=== PATIENT | female | born 2005 | race Caucasian/White ===

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

== ENCOUNTER 2024-03-13 14:32 | Emergency (ER) | payer SELFPAY ==
--- OUTSIDE RECORDS SUMMARY | 2024-03-13 14:35 | XMS REPORT | Continuity of Care Document ---
Author Name Unknown Address [address] [place] [address] thconnect Address [address] [place] [address] [address] [place] [address] Care Team Providers Care Ocean Biologist Name Role Phone Unavailable Unavailable Unavailable Encounters Start Date/Time End Date/Time Encounter Type Admission Type Attending Clinicians Care Facility Care Department Encounter ID Source 2023-09-06 15:07:00 2023-09-06 15:07:00 Outpatient [facility] [id number] Uvaldo [place]
[2024-03-13] MEDS ORDERED: ONDANSETRON 4 MG/2 ML VIAL ONE (15:21)
[2024-03-13] MEDS ORDERED: FAMOTIDINE 20 MG/2 ML VIAL IV ONE (15:21)
[2024-03-13] MEDS ORDERED: NA CHLORIDE 0.9% 1,000 ML ONE (15:21)
[2024-03-13 15:28] LABS: Absolute Lymphocytes (CBC) 1.1 K/uL (0.7-4.9); Absolute Monocytes 0.5 K/uL (0.1-1.3); Absolute Neutrophil 6.3 K/uL (1.8-8.0); Basophils % 0.4 % (0-1.3); Eosinophils % 0.4 % (0-4.4); Hematocrit 44.7 % (36.0-45.0); Hemoglobin 14.2 g/dL (12.0-15.0); Lymphocytes % 14.3 % (15.3-44.8); MCH 26.8 pg (27.0-35.0); MCHC 31.7 g/dL (32.0-36.0); MCV 84.5 fL (80-100); Monocytes % 6.7 % (3.3-12.3); Neutrophils % 78.2 % (41.7-73.7); Platelets 385 thou/uL (152-406); RBC Red Blood Cell Count 5.29 M/uL (3.86-4.86)
[2024-03-13 15:49] LABS: Bilirubin Total 1.1 mg/dL (0.2-1.0); Globulin 4.1 g/dL (2.3-3.5); Protein, Total 8.1 g/dL (6.4-8.2)
[2024-03-13 16:08] LABS: SARS-CoV-2 Antigen CONTROL BLUE LINE VIS/BG OK; SARS-CoV-2 Antigen Rapid Res Negative (Negative)
--- NOTE | 2024-03-13 17:31 | RAD REPORT ---
EXAM DESCRIPTION: US - Abdomen Exam Limited - 03/13/2024 4:39 pm CLINICAL HISTORY: upper abdomen pain COMPARISON: No comparisons TECHNIQUE: Sonographic grayscale and color flow images of the right upper abdominal quadrant were o btained. FINDINGS: The gallbladder demonstrates no gallstones. No pericholecystic fluid or gallbladder wall t hickening. The common bile duct is normal measuring 4 mm. The liver demonstrates no findings of intrahepatic biliary dilatation. IMPRESSION: Unremarkable right upper quadrant examination.
[2024-03-13 18:41] LABS: Specific Gravity 1.004 (1.005-1.030)
[2024-03-13 18:42] LABS: Specific Gravity < 1.005 (1.005-1.030); Sqamous Epithelial <5 /HPF (None Seen); Urine Bacteria <20 /HPF (<20); Urine Bilirubin NEGATIVE (Negative); Urine Blood Negative (Negative); Urine Clarity Turbid (Clear); Urine Color Colorless (Yellow); Urine Culture Reflex Order NOT NEEDED; Urine Glucose NEGATIVE (Negative); Urine Ketones NEGATIVE (Negative); Urine Microscopic Reflex YN ORDER UMIC; Urine Mucus Slight /HPF (None Seen); Urine Nitrite NEGATIVE (Negative); Urine Protein NEGATIVE (Negative); Urine RBC <5 /HPF (None Seen); Urine Urobilinogen Normal (Normal); Urine WBC <5 /HPF (<5); Urine pH 6.5 (5.0-7.0)
--- NOTE | 2024-03-13 18:55 | ER ---
Nurse's Notes [facility] Name: Mona Marquez Age: 18 yrs Sex: Female : 2005 Arrival Date: 03/13/2024 Time: 14:32 Bed 13 Private MD: Diagnosis: Nausea with vomiting, unspecified;Upper abdominal pain, unspecified Presentation: 03/13 14:46 Chief complaint: Patient states: vomiting for 3-4 days, 4-6 times a day, no fever. No dd2 diarrhea. Coronavirus screen: At this time, the client does not indicate any symptoms associated with coronavirus-19. Ebola Screen: No symptoms or risks identified at this time. Initial Sepsis Screen: Does the patient meet any 2 criteria? No. Patient's initial sepsis screen is negative. Does the patient have a suspected source of infection? No. Patient's initial sepsis screen is negative. Risk Assessment: Do you want to hurt yourself or someone else? Patient reports no desire to harm self or others. Onset of symptoms is unknown. 14:46 Method Of Arrival: Ambulatory dd2 14:46 Acuity: DEONTE 3 dd2 Triage Assessment: 14:47 General: Appears in no apparent distress. uncomfortable, Behavior is calm, cooperative, dd2 appropriate for age. Pain: Complains of pain in abdomen. GI: Reports lower abdominal pain, upper abdominal pain, nausea, vomiting. 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 - Infectious Disease History:: Denies. - Social history:: Smoking status: Patient denies any tobacco usage or history of. Screenin:11 [facility] ED Fall Risk Assessment (Adult) History of falling in the last 3 months, kj2 including since admission No falls in past 3 months (0 pts) Confusion or Disorientation No (0 pts) Intoxicated or Sedated No (0 pts) Impaired Gait No (0 pts) Mobility Assist Device Used No (0 pt) Altered Elimination No (0 pt) Score/Fall Risk Level 0 - 2 = Low Risk Maintained a safe environment, Educated pt \T\ family on fall prevention, incl call for assistance when getting out of bed, Hourly rounding (assess needs \T\ fall precautionary measures) done. Abuse screen: Denies threats or abuse. Denies injuries from another. Nutritional screening: No deficits noted. Tuberculosis screening: No symptoms or risk factors identified. Assessment: 14:50 General: Appears in no apparent distress. uncomfortable, Behavior is calm, cooperative. kj2 Pain: Complains of pain in abdomen Pain currently is 6 out of 10 on a pain scale. Neuro: Level of Consciousness is awake, alert, obeys commands, Oriented to person, place, time, situation. Cardiovascular: Patient's skin is warm and dry. Respiratory: Airway is patent Respiratory effort is unlabored. GI: Abdomen is non-distended, Reports nausea, vomiting, since three days ago. : No deficits noted. 18:48 Reassessment: Patient appears in no apparent distress at this time. Patient and/or kj2 family updated on plan of care and expected duration. Pain level reassessed. Patient is alert, oriented x 3, equal unlabored respirations, skin warm/dry/pink. 18:48 Reassessment: patient drank1 cup of water without difficulty. kj2 Vital Signs: 14:46 BP 133 / 83; Pulse 76; Resp 16; Temp 98.3; Pulse Ox 100% ; dd2 16:10 BP 127 / 79; Pulse 77; Resp 18; Temp 97.9; Pulse Ox 99% on R/A; kj2 17:45 BP 195 / 76; Pulse 71; Resp 18; Pulse Ox 100% on R/A; kj2 18:48 BP 132 / 89; Pulse 76; Resp 18; Temp 98; Pulse Ox 100% on R/A; kj2 ED Course: 14:35 Patient arrived in ED. im 14:37 Clyde Aguero PA is PHCP. cp 14:37 Brent Parsons DO is Attending Physician. cp 14:47 Triage completed. dd2 14:47 Arm band placed on right wrist. Patient placed in an exam room, on a stretcher, on dd2 pulse oximetry, Patient notified of wait time. 14:58 Tracy Spencer, DYLAN is Primary Nurse. kj2 15:00 Inserted saline lock: 20 gauge in left antecubital area, using aseptic technique. Blood kj2 collected. Flushed with 10 mL NS. 16:07 No provider procedures requiring assistance completed. kj2 16:12 Patient has correct armband on for positive identification. Bed in low position. Call kj2 light in reach. Side rails up X 1. Provided Education on: call light, fall precautions. 16:41 US Abdomen Limited: gallbladder In Process Unspecified. EDMS 19:12 IV discontinued. rg5 Administered Medications: 15:10 Drug: Famotidine IVP 20 mg IVP once; dilute with 10 mL 0.9% NaCl; give over 2 minutes kj2 Route: IVP; Site: left antecubital; 18:42 Follow up: Response: No adverse reaction kj2 15:13 Drug: Ondansetron IVP 4 mg IVP once; over 2 minutes Route: IVP; Site: left antecubital; kj2 19:00 Follow up: Response: No adverse reaction rg5 15:18 Drug: NS 0.9% IV 1000 ml IV at 1 bolus Per protocol; 1000 mL bolus Route: IV; Rate: 1 kj2 bolus; Site: left antecubital; 19:00 Follow up: IV Status: Completed infusion; IV Intake: 1000ml rg5 Medication: 16:11 VIS not applicable for this client. kj2 Intake: 19:00 IV: 1000ml; Total: 1000ml. rg5 Outcome: 18:55 Discharge ordered by . cp 19:12 Discharged to home ambulatory, rg5 19:12 Condition: stable 19:12 Discharge instructions given to patient, Instructed on discharge instructions, follow up and referral plans. Demonstrated understanding of instructions, follow-up care, medications, Prescriptions given X 2, 19:13 Patient left the ED. rg5 Signatures: Dispatcher [employer] EDMS Clyde Aguero PA PA cp Mendoza, Itzel im Gallardo, Rommel RN RN rg5 Tracy Spencer RN RN kj2 JULIETTE ZHENG RN RN dd2
--- NOTE | 2024-03-13 18:55 | EDPHYS ---
Physician Documentation [facility] Name: Mona Marquez Age: 18 yrs Sex: Female : 2005 Arrival Date: 03/13/2024 Time: 14:32 Bed 13 Private MD: ED Physician Brent Parsons HPI: 03/13 15:00 This 18 yrs old Female presents to ER via Ambulatory with complaints of Vomiting, cp Doesn't Feel Right, Urinary Problem. 15:00 The patient presents to the emergency department with nausea, that is moderate, cp vomiting, that is intermittent. Onset: The symptoms/episode began/occurred 3 day(s) ago. Possible causes: unknown. Associated signs and symptoms: Pertinent positives: anorexia, Pertinent negatives: abdominal pain, constipation, diarrhea, fever, GI bleeding. Severity of symptoms: in the emergency department the symptoms are unchanged despite home interventions. 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 - Infectious Disease History:: Denies. - Social history:: Smoking status: Patient denies any tobacco usage or history of. ROS: 15:05 Constitutional: Positive for poor PO intake, Negative for body aches, chills, fever, cp 15:05 Eyes: Negative for injury, pain, redness, and discharge, cp 15:05 ENT: Positive for sore throat, Negative for drainage from ear(s), ear pain, difficulty swallowing, difficulty handling secretions, 15:05 Cardiovascular: Negative for chest pain, 15:05 Respiratory: Negative for cough, shortness of breath, wheezing, 15:05 Abdomen/GI: Positive for nausea and vomiting, anorexia, Negative for abdominal pain, diarrhea, constipation, hematemesis, 15:05 Neuro: Negative for altered mental status, dizziness, headache, numbness, syncope, weakness, 15:05 All other systems are negative, Exam: 15:10 Constitutional: The patient appears in no acute distress, alert, awake, non-toxic, well cp developed, well nourished, 15:10 Head/Face: Normocephalic, atraumatic. cp 15:10 Eyes: Periorbital structures: appear normal, Conjunctiva: normal, no exudate, no injection, Sclera: no appreciated abnormality, Lids and lashes: appear normal, bilaterally, 15:10 ENT: External ear(s): are unremarkable, Nose: is normal, Mouth: Lips: moist, Oral mucosa: pink and intact, moist, Posterior pharynx: is normal, airway is patent, no erythema, no exudate, 15:10 Neck: ROM/movement: is normal, is supple, without pain, no range of motions limitations, 15:10 Chest/axilla: Inspection: normal, 15:10 Cardiovascular: Rate: normal, Rhythm: regular, 15:10 Respiratory: the patient does not display signs of respiratory distress, Respirations: normal, no use of accessory muscles, no retractions, labored breathing, is not present, Breath sounds: are clear throughout, no decreased breath sounds, no stridor, no wheezing, 15:10 Abdomen/GI: Inspection: abdomen appears normal, Bowel sounds: active, all quadrants, Palpation: soft, in all quadrants, mild abdominal tenderness, in the right upper quadrant, moderate abdominal tenderness, in the epigastric area, rebound tenderness, is not appreciated, involuntary guarding, is not appreciated, 15:10 Back: pain, is absent, ROM is normal, 15:10 Neuro: Orientation: to person, place \T\ time. Mentation: is normal, Motor: moves all fours, strength is normal, Sensation: is normal, Vital Signs: 14:46 BP 133 / 83; Pulse 76; Resp 16; Temp 98.3; Pulse Ox 100% ; dd2 16:10 BP 127 / 79; Pulse 77; Resp 18; Temp 97.9; Pulse Ox 99% on R/A; kj2 17:45 BP 195 / 76; Pulse 71; Resp 18; Pulse Ox 100% on R/A; kj2 18:48 BP 132 / 89; Pulse 76; Resp 18; Temp 98; Pulse Ox 100% on R/A; kj2 MDM: 14:55 Patient medically screened. cp 18:55 Data reviewed: vital signs, nurses notes, lab test result(s), radiologic studies, cp ultrasound, and as a result, I will discharge patient. 18:55 Differential diagnosis: gastritis, cholecystitis, pancreatitis, appendicitis, viral cp gastroenteritis, gastroenteritis, . I considered the following discharge prescriptions or medication management in the emergency department Medications were administered in the Emergency Department. See MAR. Test considered but Not performed: CT: abdomen/pelvis. Counseling: I had a detailed discussion with the patient and/or guardian regarding the historical points, exam findings, and any diagnostic results supporting the discharge/admit diagnosis, lab results, radiology results, to return to the emergency department if symptoms worsen or persist or if there are any questions or concerns that arise at home. Response to treatment: the patient's symptoms have markedly improved after treatment, and as a result, I will discharge patient. Special discussion: Based on the patient's Hx, exam, and Dx evaluation, there is no indication for emergent surgery or inpatient Tx. It is understood by the patient/guardian that if the Sx's persist or worsen they need to return immediately for re-evaluation. 03/13 15:26 Order name: Comprehensive Metabolic Panel; Complete Time: 16:19 [facility] 03/13 16:58 Interpretation: Normal except: BUN 5; ALK 120; BILIT 1.1; GLOB 4.1; A/G 1.0. 03/13 15:26 Order name: Lipase; Complete Time: 16:19 [facility] 03/13 15:26 Order name: CBC with Automated Diff; Complete Time: 16:19 [facility] 03/13 16:58 Interpretation: Normal except: RBC 5.29; MCH 26.8; MCHC 31.7; RDW 16.0; SANDRITA% 78.2; LYM% cp 14.3. 03/13 15:44 Order name: SARS-COV-2 Antigen Rapid; Complete Time: 16:19 [facility] 03/13 15:44 Order name: Influenza Screen (A ; Complete Time: 16:19 [facility] 03/13 15:44 Order name: Group A Streptococcus Rapid Sc [facility] 03/13 16:10 Order name: Throat Culture [facility] 03/13 18:34 Order name: Test, Urine; Complete Time: 18:49 [facility] 03/13 18:34 Order name: Urinalysis w/ reflexes; Complete Time: 18:49 [facility] 03/13 16:20 Order name: US Abdomen Limited: gallbladder; Complete Time: 17:35 03/13 17:35 Interpretation: Report reviewed. 03/13 14:56 Order name: IV Saline Lock; Complete Time: 15:36 cp 03/13 14:56 Order name: Labs collected and sent; Complete Time: 15:36 cp 03/13 17:35 Order name: PO challenge; Complete Time: 18:47 cp Administered Medications: 15:10 Drug: Famotidine IVP 20 mg IVP once; dilute with 10 mL 0.9% NaCl; give over 2 minutes kj2 Route: IVP; Site: left antecubital; 18:42 Follow up: Response: No adverse reaction kj2 15:13 Drug: Ondansetron IVP 4 mg IVP once; over 2 minutes Route: IVP; Site: left antecubital; kj2 19:00 Follow up: Response: No adverse reaction rg5 15:18 Drug: NS 0.9% IV 1000 ml IV at 1 bolus Per protocol; 1000 mL bolus Route: IV; Rate: 1 kj2 bolus; Site: left antecubital; 19:00 Follow up: IV Status: Completed infusion; IV Intake: 1000ml rg5 Disposition: 16:15 I was immediately available on-site in the Emergency Department for consultation in the ms3 care of the patient. Disposition Summary: 03/13/24 18:55 Discharge Ordered Notes: Location: Home cp Problem: new cp Symptoms: have improved cp Condition: Stable cp Diagnosis - Nausea with vomiting, unspecified cp - Upper abdominal pain, unspecified cp Followup: cp - With: Private Physician - When: 2 - 3 days - Reason: symptoms continue Discharge Instructions: - Discharge Summary Sheet cp - Abdominal Pain, Adult cp - Nausea and Vomiting, Adult cp Forms: - Medication Reconciliation Form cp - Antibiotic Education cp - Prescription Opioid Use cp - Patient Portal Instructions cp - Leadership Thank You Letter cp Prescriptions: - Pepcid 20 mg Oral Tablet - take 1 tablet ORAL route every 12 hours for 10 days; 20 tablet; Refills: 0, cp Product Selection Permitted - ondansetron 8 mg Oral Tablet,disintegrating - take 1 tablet ORAL route every 12 hours; 15 tablet; Refills: 0, Product cp Selection Permitted Signatures: Dispatcher [employer] EDMS Clyde Aguero PA PA cp Sims, Marcus, DO DO ms3 Tracy Spencer RN RN kj2 JULIETTE ZHENG RN RN dd2 Edil Batres RN rg5 Corrections: (The following items were deleted from the chart) 18:29 18:12 Brenner ordered. jesus [id number]
[2024-03-13 19:33] VITALS: O2SAT 100
[2024-03-13 19:35] VITALS: BP 132/89; TEMP 98
== END 2024-03-13 19:13 | disposition home or self-care (01) ==
LOC: ER 14:32
DX: R11.2 Nausea with vomiting, unspecified (principal); R10.10 Upper abdominal pain, unspecified; Z11.52 Encounter for screening for COVID-19
CPT/HCPCS: 36415; 76705; 80053; 81001; 81025; 83690; 85025; 87070; 87081; 87804; 87811; 96361; 96374; 96375; 99284; J2405; J7030